=== PATIENT | male | born 1970 | race American Indian/Alaskan Native ===

== ENCOUNTER 2019-06-13 18:43 | Emergency (ER) | payer BC ==
--- NOTE | 2019-06-13 20:32 | CR ---
Chest: Portable view of the chest was obtained. Comparison: No previous chest imaging. Slight linear density is noted within the left base most likely representing minimal scar. Lungs otherwise are clear with no acute appearing parenchymal change. Heart size is normal. Upper mediastinum is normal. Bony structures are grossly intact. Impression: 1. Probable minimal scar within the left base. 2. Nothing acute is appreciated on portable chest x-ray. Diagnostic code #2 This report was dictated in MDT
--- NOTE | 2019-06-13 20:52 | EDM.PDOC ---
ED HPI GENERAL MEDICAL PROBLEM - General Chief Complaint: Cardiovascular Problem Stated Complaint: HIGH BLOOD PRESSURE SHAKEY Time Seen by Provider: 06/13/19 19:02 Source of Information: Reports: Patient History Limitations: Reports: No Limitations - History of Present Illness INITIAL COMMENTS - FREE TEXT/NARRATIVE: TRIAGE NOTE -- Hx of heart attack in 2012, Pt went to [facility] in clinic due to not being able to hear in his right ear and then was sent to the ER due to HTN. Pt blood pessure at clinic was 141/104. Pt denies SOB, N/V but states that he is feeling lightheaded and dizzy. Normal vision, Pt states that his headach that he had while at the clinic has now gone away. [ End As above. Patient went to his clinic because he could not hear out of his right ear. He was noted to have elevated blood pressure and was sent to the ER. There are no other troubling symptoms involved. Risk factors include history of [place] and other related cardiovascular issues none of which seem to be acute by history per patient at this point. He has been using Q-tips to clean out his ears and the hearing loss has been within the past 24 hours or so. - Related Data Allergies Allergy/AdvReac Type Severity Reaction Status Date / Time Environmental Allergy sneezing/co Uncoded 06/15/18 07:36 CDT ngestion Home Meds: Home Meds Aspirin 81 mg PO DAILY 06/15/18 [History] Celecoxib 100 mg PO BID 06/15/18 [History] Loratadine 10 mg PO DAILY PRN 06/15/18 [History] Metoprolol Succinate [Toprol XL] 25 mg PO DAILY 06/15/18 [History] Omega3/Dha/Epa/Fish Oil/Vit D3 [Fish Oil-Vit D3 Softgel] 1 cap PO DAILY [History] Omeprazole 20 mg PO DAILY 06/15/18 [History] allopurinoL [Zyloprim] 100 mg PO DAILY 06/15/18 [History] atorvaSTATin [Lipitor] 10 mg PO DAILY 06/15/18 [History] Fenofibrate Nanocrystallized [Fenofibrate] 48 mg PO DAILY 06/13/19 [History] Fenofibrate,Micronized [Fenofibrate] 06/13/19 [History] Past Medical History HEENT History: Reports: None Cardiovascular History: Reports: High Cholesterol, Hypertension, [place] Respiratory History: Reports: None Gastrointestinal History: Reports: None Genitourinary History: Reports: None Musculoskeletal History: Reports: None Neurological History: Reports: None Endocrine/Metabolic History: Reports: None Hematologic History: Reports: None Immunologic History: Reports: None Oncologic (Cancer) History: Reports: Other (See Below) Other Oncologic History: testicular cancer Dermatologic History: Reports: None Social & Family History - Tobacco Use Smoking Status *Q: Former Smoker Used Tobacco, but Quit: Yes Month/Year Tobacco Last Used: 8 - Caffeine Use Caffeine Use: Reports: Coffee, Soda - Recreational Drug Use Recreational Drug Use: No ED ROS GENERAL - Review of Systems Review Of Systems: Comprehensive ROS is negative, except as noted in HPI. ED EXAM, GENERAL - Physical Exam Exam: See Below Exam Limited By: No Limitations General Appearance: Alert, WD/WN, No Apparent Distress Eye Exam: Bilateral Eye: EOMI, PERRL Ears: Normal External Exam Ear Exam: Right Ear: Auricle Normal, Left Ear: Canal Normal (Right ear there is apparent dense cerumen impaction tight against the TM. TM cannot be seen.), TM normal Nose: Normal Inspection, No Blood Throat/Mouth: Normal Inspection, Normal Lips, Normal Voice, No Airway Compromise Head: Atraumatic, Normocephalic Neck: Normal Inspection, Supple Respiratory/Chest: No Respiratory Distress, Lungs Clear, Normal Breath Sounds Cardiovascular: Regular Rate, Rhythm, No Edema GI/Abdominal: Soft, Non-Tender Back Exam: Normal Inspection Extremities: Normal Inspection, Non-Tender, No Pedal Edema Neurological: Alert, Oriented, Normal Cognition, No Motor/Sensory Deficits Psychiatric: Normal Affect, Normal Mood Skin Exam: Warm, Dry Course - Vital Signs Last Recorded V/S: Last Vital Signs Temp 36.8 C 06/13/19 19:15 Pulse 80 06/13/19 20:31 Resp 17 06/13/19 20:31 BP 142/98 H 06/13/19 20:31 Pulse Ox 93 L 06/13/19 20:31 - Orders/Labs/Meds Orders: Active Orders 24 hr Category Date Time Status EKG Documentation Completion [RC] STAT Care 06/13/19 19:36 Active CBC WITH MANUAL DIFF [HEME] Stat Lab 06/13/19 19:50 Results Labs: Laboratory Tests 05/04/20 05/04/20 Range/Units 19:50 19:50 WBC 7.19 (4.23-9.07) K/mm3 RBC 5.23 (4.63-6.08) M/mm3 Hgb 15.0 (13.7-17.5) gm/dl Hct 45.0 (40.1-51.0) % MCV 86.0 (79.0-92.2) fl MCH 28.7 (25.7-32.2) pg MCHC 33.3 (32.2-35.5) g/dl RDW Std Deviation 40.9 (35.1-43.9) fL Plt Count 359 H (163-337) K/mm3 MPV 10.0 (9.4-12.3) fl Sodium 142 (136-145) mEq/L Potassium 3.8 (3.5-5.1) mEq/L Chloride 105 (98-107) mEq/L Carbon Dioxide 26 (21-32) mEq/L Anion Gap 14.8 (5-15) BUN 18 (7-18) mg/dL Creatinine 1.0 (0.7-1.3) mg/dL Est Cr Clr Drug Dosing 85.50 mL/min Estimated GFR (MDRD) > 60 (>60) mL/min BUN/Creatinine Ratio 18.0 (14-18) Glucose 113 H (74-106) mg/dL Calcium 9.4 (8.5-10.1) mg/dL Total Bilirubin 0.4 (0.2-1.0) mg/dL AST 15 (15-37) U/L ALT 25 (16-63) U/L Alkaline Phosphatase 86 (46-116) U/L Troponin I < 0.017 (0.00-0.056) ng/mL Total Protein 7.9 (6.4-8.2) g/dl Albumin 4.6 (3.4-5.0) g/dl Globulin 3.3 gm/dL Albumin/Globulin Ratio 1.4 (1-2) - Re-Assessments/Exams Free Text/Narrative Re-Assessment/Exam: 06/13/19 20:53 The patient had a full work-up for vague potentially cardiological symptoms without any salient abnormal findings. Blood pressure moderated to 140s systolic without any intervention here. Concern is apparent dense cerumen impaction tight against the tympanic membrane on the right producing significant hearing loss. Doubt that Cerumenex or similar preparation will help at this point. He needs to see ENT to evaluate this particularly in light of the inability to hear out of the ear. See referral information below. Departure - Departure Time of Disposition: 20:54 Disposition: Home, Self-Care 01 Condition: Good Clinical Impression: Poorly-controlled hypertension, Impacted cerumen of right ear Hearing loss Qualifiers: Hearing loss type: conductive Laterality: right Contralateral hearing status: unrestricted hearing on contralateral side Qualified Code(s): H90.11 - Conductive hearing loss, unilateral, right ear, with unrestricted hearing on the contralateral side Referrals: PCP,Not In Area [Primary Care Provider] - Additional Instructions: You have hearing loss in the right ear from what appears to be an impaction of earwax. This is so dense and also in light of the hearing loss you should see ENT JIE. You are referred to Dr. Kaylyn Melton in [place] telephone number [phone]. Call in the morning and arrange to be seen as soon as possible. Your blood pressure is in need of better control. Please see your [employer] applier or primary for possible revision of your medication regimen for this. Do not hesitate to return to the ER for any concern particularly if it involves chest pain passing out shortness of breath etc. Sepsis Event Note - Evaluation Sepsis Screening Result: No Definite Risk - Focused Exam Vital Signs: Vital Signs Temp Pulse Pulse Resp BP BP Pulse Ox 06/13/19 20:31 80 17 142/98 H 93 L 06/13/19 20:30 77 14 93 L 06/13/19 20:16 89 12 147/104 H 95 06/13/19 20:15 74 12 92 L 06/13/19 20:04 76 13 94 L 06/13/19 19:15 36.8 C 78 18 185/107 H Date Exam was Performed: 06/13/19 Time Exam was Performed: 20:47 - My Orders Last 24 Hours: My Active Orders 06/13/19 19:36 EKG Documentation Completion [RC] STAT 06/13/19 19:50 CBC WITH MANUAL DIFF [HEME] Stat - Assessment/Plan Last 24 Hours: My Active Orders 06/13/19 19:36 EKG Documentation Completion [RC] STAT 06/13/19 19:50 CBC WITH MANUAL DIFF [HEME] Stat
== END 2019-06-13 21:08 | disposition home or self-care (01) ==
LOC: JD.ED 18:43
DX: H90.11 Conductive hearing loss, unilateral, right ear, with unrestricted hearing on the contralateral side (principal); I10 Essential (primary) hypertension; H61.21 Impacted cerumen, right ear; E78.00 Pure hypercholesterolemia, unspecified; I25.2 Old myocardial infarction; Z87.891 Personal history of nicotine dependence; Z91.048 Other nonmedicinal substance allergy status; Z79.82 Long term (current) use of aspirin; Z79.899 Other long term (current) drug therapy
CPT/HCPCS: 36415; 71045; 71045-26; 80053; 84484; 85007; 85027; 93005; 99284-25